=== PATIENT | female | born 1995 | race Caucasian/White ===

== ENCOUNTER 2018-07-12 10:29 | Day surgery (SDC) | payer BC ==
[2018-07-12] MEDS ORDERED: MELATONIN1 MG PO (10:52)
[2018-07-12] MEDS ORDERED: COLACE CLEAR50 MG PO (10:52)
--- NOTE | 2018-07-12 12:20 | NUR ---
07/12/18 1220 Danna,Candace 1214 PT ARRIVED TO PACU ASLEEP AND ON 3L VIA NC. RESP EVEN AND UNLABROED.
--- NOTE | 2018-07-13 11:06 | OR ---
[facility] [address] [place], [place] [address] Signed DATE OF OPERATION: 07/12/2018 SURGEON: Tavo Anglin MD PREOPERATIVE DIAGNOSES: 1. Right lower abdominal pain, anemia, diarrhea, and weight loss. 2. History of appendectomy 2018. POSTOPERATIVE DIAGNOSIS: Terminal ileitis (Crohn disease of ilium). PROCEDURE: Total colonoscopy to cecum with intubation of ileum and biopsies. ANESTHESIA: Intravenous sedation, fentanyl 100 mcg, Versed 4 mg. INDICATION: This 22-year-old white woman is a patient of Dr. Soria and was referred for further evaluation of right lower abdominal pain, diarrhea, and anemia as well as weight loss. She was self-referred to Dr. Soria for the anemia issue. She has previously seen Dr. Trinh as well as Dr. Macias in [place]. She does not describe a primary care provider otherwise at this time. A strong consideration was made for probable terminal ileitis (Crohn disease). She was admitted at this time to undergo colonoscopy to better confirm this suspicion. The risks of bleeding, infection, and perforation related to colonoscopy was reviewed with her. She understands and wished to proceed. FINDINGS: Rather classic terminal ileitis was noted. Narrowing and marked inflammation and thickening of the tissue of the ileum was noted. Biopsies were obtained. The cecum and remaining colon appeared reasonably normal grossly, however. PROCEDURE IN DETAIL: The patient was brought to the endoscopy suite and placed in lateral decubitus position given intravenous sedation to the point of slurred speech and nystagmus. Digital rectal examination was normal. An Olympus video colonoscope was passed in the rectum and manipulated throughout the colon ultimately intubating the cecum, locating and finding the ileocecal valve was Electronically Signed By: TAVO ANGLIN MD 07/13/18 1106 PATIENT NAME: ANDERS SIMS OPERATIVE REPORT DATE OF : [birth year] REPORT #: [id number] PHYSICIAN: TAVO ANGLIN MD PCP: NO PRIMARY CARE PHYSICIAN REPORT IS CONFIDENTIAL AND NOT TO BE RELEASED WITHOUT AUTHORIZATION [facility] [address] [place], [place] [address] Signed initially challenging, but then friable area was noted and with various manipulations, the ileum encountered and intubated. Rather typical and classic terminal ileitis was noted. There was thickening of the mucosa, narrowing of the lumen and so on. Multiple biopsies were obtained and photographs taken. The scope was withdrawn into the cecum where biopsies were obtained, but the mucosa appeared reasonably normal. Careful withdrawal of scope allowed for random biopsies throughout the remaining colon, all of which appeared normal except the rectum, which had mild inflammation. Biopsies were obtained there as well of course. The scope was removed and the patient was taken to recovery room in good condition. CONCLUDING DIAGNOSIS: Crohn's disease (terminal ileitis). No evidence of colitis. Market narrowing of the ileum, but without clinical findings of actual obstruction. PLAN: She will be initiated on prednisone 40 mg daily as well as proton pump inhibitor medication for side of protection of the stomach as well as mesalamine 800 mg p.o. t.i.d. We will initially give Flagyl 250 mg p.o. t.i.d. for 2 weeks. I will see her back in the next few weeks. She may ultimately require terminal ileectomy with anastomosis. Tavo Anglin MD JM/MODL /[id number] cc: MD Moi Acosta MD Copies: JO TRINH MD, ROBERT C MD ~ Electronically Signed By: TAVO ANGLIN MD 07/13/18 1106 PATIENT NAME: ANDERS SIMS OPERATIVE REPORT DATE OF : [birth year] REPORT #: [id number] PHYSICIAN: TAVO ANGLIN MD PCP: NO PRIMARY CARE PHYSICIAN REPORT IS CONFIDENTIAL AND NOT TO BE RELEASED WITHOUT AUTHORIZATION
== END 2018-07-12 13:44 | disposition home or self-care (01) ==
LOC: DS 10:29 → OPS 10:29 → DS 12:45 → OPS 13:44
PROVIDERS: Surgery
PROC: 0DBL8ZX Excision of Transverse Colon, Via Natural or Artificial Opening Endoscopic, Diagnostic (ICD-10-PCS; 2018-07-12)
PROC: 0DBN8ZX Excision of Sigmoid Colon, Via Natural or Artificial Opening Endoscopic, Diagnostic (ICD-10-PCS; 2018-07-12)
PROC: 0DBP8ZX Excision of Rectum, Via Natural or Artificial Opening Endoscopic, Diagnostic (ICD-10-PCS; 2018-07-12)
PROC: 0DBG8ZX Excision of Left Large Intestine, Via Natural or Artificial Opening Endoscopic, Diagnostic (ICD-10-PCS; 2018-07-12)
PROC: 0DBB8ZX Excision of Ileum, Via Natural or Artificial Opening Endoscopic, Diagnostic (ICD-10-PCS; 2018-07-12)
PROC: 0DBH8ZX Excision of Cecum, Via Natural or Artificial Opening Endoscopic, Diagnostic (ICD-10-PCS; principal; 2018-07-12 12:00)
DX: K50.00 Crohn's disease of small intestine without complications (principal); K52.9 Noninfective gastroenteritis and colitis, unspecified; K63.3 Ulcer of intestine; D50.9 Iron deficiency anemia, unspecified; R63.4 Abnormal weight loss; Z91.030 Bee allergy status; Z88.8 Allergy status to other drugs, medicaments and biological substances; Z91.048 Other nonmedicinal substance allergy status; Z87.891 Personal history of nicotine dependence; Z90.49 Acquired absence of other specified parts of digestive tract; Z68.20 Body mass index [BMI] 20.0-20.9, adult
CPT/HCPCS: 99153; G0500; J2250; J3010; J7120

== ENCOUNTER 2020-05-11 00:33 | Inpatient (IN) | payer BC, OTHER ==
[~2020-05-11] VITALS: Ht 167.6 cm; Wt 73.9 kg
[~2020-05-11 00:33] MED LIST: COLACE CLEAR50 MG PO; MELATONIN1 MG PO
[2020-05-11] MEDS ORDERED: REMICADE100 MG/10 IV (05:17)
[2020-05-11] MEDS ORDERED: PRENATABS RX T1 EACH PO (05:18)
--- NOTE | 2020-05-11 12:25 | PR ---
[facility] [address] [place] [address] Signed Progress Notes IP Datetime Report Generated by CPN: 05/11/2020 12:25 PROGRESS NOTES: [id number] Plan: Cervical Ripening; Anticipate Vaginal Delivery VITAL SIGNS: [id number] Vital Signs: Reviewed; Within Normal Limits EXAM: [id number] Contractions: none MEMBRANES: [id number] Membranes Status: Intact Comments: Should be able to start Cytotec soon now. Discussed reqason for delay with patient, but will be starting soon. FETUS A: [id number] FHR Baseline: 120 Variability: Moderate 6-25bpm Accelerations: 15X15 FETUS B: [id number] Signing Physician: Olivia Powell MD Copies: ~ *Electronically Signed* 05/11/20 1225 OLIVIA POWELL MD PATIENT NAME: ANDERS SIMS PROGRESS NOTE DATE OF : [birth year] PHYSICIAN: OLIVIA POWELL MD RPT #: [id number] REPORT IS CONFIDENTIAL AND NOT TO BE RELEASED WITHOUT AUTHORIZATION
--- NOTE | 2020-05-11 14:01 | PR ---
[facility] [address] [place], [place] [address] Signed Progress Notes IP Datetime Report Generated by CPN: 05/11/2020 14:01 PROGRESS NOTES: [id number] Other Procedures: IV fluids Plan: Cervical Ripening; Anticipate Vaginal Delivery VITAL SIGNS: [id number] Vital Signs: Reviewed; Within Normal Limits EXAM: [id number] Contractions: none MEMBRANES: [id number] Membranes Status: Intact Comments: c/o vaginal itching/irritation after insertion of Cytotec. Nurse attempted to sweepa ny non-disolved CYtotec out of vagina. Patient doing well now, but getting frustrated about lack of progress/getting started late. Discussed patient safety issues, symptoms, options. Questions answered. Patient seems satisfied with plan. Will recheck cervix when 2nd Cytotec due and discuss plan with patient. FETUS A: [id number] FHR Baseline: 120 Variability: Moderate 6-25bpm Accelerations: 15X15 FETUS B: [id number] Signing Physician: Olivia Powell MD Copies: ~ *Electronically Signed* 05/11/20 1401 OLIVIA POWLEL MD PATIENT NAME: ANDERS SIMS PROGRESS NOTE DATE OF : [birth year] PHYSICIAN: OLIVIA POWELL MD RPT #: [id number] REPORT IS CONFIDENTIAL AND NOT TO BE RELEASED WITHOUT AUTHORIZATION
--- NOTE | 2020-05-11 17:05 | PR ---
[facility] [address] [facility] [place], [place] [address] Signed Progress Notes IP Datetime Report Generated by CPN: 05/11/2020 17:05 PROGRESS NOTES: [id number] Other Impressions: Slow progression of labor Procedures: Artificial ROM Other Procedures: IV fluids Plan: Continue Present Management VITAL SIGNS: [id number] Vital Signs: Reviewed; Within Normal Limits EXAM: [id number] Dilatation: 2.0 Effacement: 50 Station: -3 Contractions: none MEMBRANES: [id number] Membranes Status: Ruptured Comments: Patient having mild contractions, does not want repeat Cytotec. Discussed options of Pitocin IV, AROM, vs going home and restarting another day. After discussions of risks vs benefits, patient elected AROM. WIll continue monitoring. FETUS A: [id number] FHR Baseline: 120 Variability: Moderate 6-25bpm Accelerations: 15X15 FETUS B: [id number] Signing Physician: Olivia Powell MD Copies: ~ *Electronically Signed* 05/11/20 6918 OLIVIA POWELL MD PATIENT NAME: ANDERS SIMS PROGRESS NOTE DATE OF : [birth year] PHYSICIAN: OLIVIA POWELL MD RPT #: [id number] REPORT IS CONFIDENTIAL AND NOT TO BE RELEASED WITHOUT AUTHORIZATION
--- NOTE | 2020-05-12 12:27 | PR ---
[facility] [address] [facility] [place] [address] Signed PP Progress Notes Datetime Report Generated by CPN: 05/12/2020 12:27 SUBJECTIVE: [id number] Pain: Within Normal Limits Nausea/Vomiting: Denies Vital Signs: Y4783032 Vital Signs: Reviewed; Within Normal Limits Notable Details: PP Hgb/Hct = 9.4/29.6 Abdomen/Uterus: Normal Lochia: Normal Extremities: Normal IMPRESSION/PLAN/PROCEDURES: Q2513742 Impression: Normal Progression Plan: Continue Present Management Procedures: None Progress Notes: Doing well, without complaint. Signing Physician: Olivia Powell MD Copies: ~ *Electronically Signed* 05/12/20 1227 OLIVIA POWELL MD PATIENT NAME: ANDERS SIMS PROGRESS NOTE DATE OF : [birth year] PHYSICIAN: OLIVIA POWELL MD RPT #: [id number] REPORT IS CONFIDENTIAL AND NOT TO BE RELEASED WITHOUT AUTHORIZATION
--- NOTE | 2020-05-13 12:23 | PR ---
[facility] [address] [facility] [place] [address] Signed PP Progress Notes Datetime Report Generated by CPN: 05/13/2020 12:23 SUBJECTIVE: [id number] Pain: Within Normal Limits Nausea/Vomiting: Denies Vital Signs: I9823105 Vital Signs: Reviewed; Within Normal Limits Notable Details: PP Hgb/Hct = 9.4/29.6 EXAM: Met Abdomen/Uterus: Normal Lochia: Normal Extremities: Normal IMPRESSION/PLAN/PROCEDURES: [id number] Impression: Normal Progression Plan: Discharge Procedures: None Progress Notes: Doing well, without complaint, ready to go home. Signing Physician: Olivia Powell MD Copies: ~ *Electronically Signed* 05/13/20 1223 OLIVIA POWELL MD PATIENT NAME: ANDERS SIMS PROGRESS NOTE DATE OF : [birth year] PHYSICIAN: OLIVIA POWELL MD RPT #: [id number] REPORT IS CONFIDENTIAL AND NOT TO BE RELEASED WITHOUT AUTHORIZATION
== END 2020-05-13 13:10 | disposition home or self-care (01) | DRG 806 ==
LOC: FBC 00:33
PROVIDERS: ADMIT General Practice; ATTEND General Practice
PROC: 10E0XZZ Delivery of Products of Conception, External Approach (ICD-10-PCS; principal; 2020-05-11)
PROC: 0UQMXZZ Repair Vulva, External Approach (ICD-10-PCS; 2020-05-11)
PROC: 10907ZC Drainage of Amniotic Fluid, Therapeutic from Products of Conception, Via Natural or Artificial Opening (ICD-10-PCS; 2020-05-11)
PROC: 3E0P7VZ Introduction of Hormone into Female Reproductive, Via Natural or Artificial Opening (ICD-10-PCS; 2020-05-11)
DX: O36.8130 Decreased fetal movements, third trimester, not applicable or unspecified (principal); K50.90 Crohn's disease, unspecified, without complications; Z37.0 Single live birth; O71.82 Other specified trauma to perineum and vulva; Z3A.38 38 weeks gestation of pregnancy; O69.1XX0 Labor and delivery complicated by cord around neck, with compression, not applicable or unspecified; O28.2 Abnormal cytological finding on antenatal screening of mother; O99.62 Diseases of the digestive system complicating childbirth; Z88.8 Allergy status to other drugs, medicaments and biological substances; Z87.891 Personal history of nicotine dependence; Z93.0 Tracheostomy status; Z79.899 Other long term (current) drug therapy
CPT/HCPCS: 36415; 85027; A9270; J0461; J2001; J2550; J2590; J2795; J3010

== ENCOUNTER 2020-10-20 18:53 | Emergency (ER) | payer BC, OTHER ==
[~2020-10-20] VITALS: Ht 167.6 cm; Wt 63.5 kg
[~2020-10-20 18:53] MED LIST changes: +PRENATABS RX T1 EACH PO; +REMICADE100 MG/10 IV
[2020-10-20] MEDS ORDERED: FOLIC ACID1 MG PO (19:15)
[2020-10-20] MEDS ORDERED: METHOTREXATE2.5 MG PO (19:15)
[2020-10-20] MEDS ORDERED: MAPAP500 MG PO (20:55)
[2020-10-20] MEDS ORDERED: LIDODERM1 EACH TOP (20:55)
--- NOTE | 2020-10-21 22:21 | EKG ---
[facility] [address] [facility] [place], [place] [address] Signed Normal sinus rhythm Normal ECG No previous ECGs available Confirmed by JORGE IBARRA MD ([id number]) on 10/21/2020 10:21:39 PM Electronically Signed By: JORGE IBARRA MD 10/21/202220 PATIENT NAME: ANDERS SIMS Electrocardiogram DATE OF : [birth year] PHYSICIAN: JORGE IBARRA MD REPORT #: [id number] REPORT IS CONFIDENTIAL AND NOT TO BE RELEASED WITHOUT AUTHORIZATION
== END 2020-10-20 21:29 | disposition home or self-care (01) ==
LOC: ED 18:53
DX: R07.89 Other chest pain (principal); Z87.891 Personal history of nicotine dependence; Z88.8 Allergy status to other drugs, medicaments and biological substances; Z91.048 Other nonmedicinal substance allergy status; Z91.030 Bee allergy status; Z79.899 Other long term (current) drug therapy
CPT/HCPCS: 71046; 93005; 93010; 99285-25

== ENCOUNTER 2023-03-08 18:45 | Inpatient (IN) | payer BC, OTHER ==
[~2023-03-08 18:45] MED LIST changes: +FOLIC ACID1 MG PO; +LIDODERM1 EACH TOP; +MAPAP500 MG PO; +METHOTREXATE2.5 MG PO; +METOCLOPRAMIDE10 MG PO; +PROMETHAZINE HC25 MG PR; +STELARA90 MG/1 ML SUB-Q
[2023-03-09 08:35] LABS: HEMATOCRIT 36.7 % (35.0-50.0); HEMOGLOBIN 11.9 g/dL (12.0-18.0); MCH 26.8 (27-36); MCHC 32.4 g/dl (30-36); MCV 82.8 fl (81-99); RBC 4.44 M/ul (4.3-5.7); RDW 16.4 (10.5-15.0)
[2023-03-09 09:16] LABS: ABO O; RH POSITIVE
[2023-03-09 09:17] LABS: ANTIBODY SCREEN NEGATIVE
[2023-03-09 09:40] LABS: INFLUENZA B NAA NEGATIVE (NEGATIVE); RESPIRATORY SYNCYTIAL VIR NAA NEGATIVE (NEGATIVE)
--- NOTE | 2023-03-09 09:50 | NUR ---
PT DECLINED PASTORAL CARE VISIT. REVIEWED BURIAL FORM WITH BINDU LEE. PER BINDU LEE MOTHER DECLINES HOSPITAL BURIAL SERVICES AND WISHED TO HAVE BABY CREMATED THROUGH [facility] [employer]. BINDU LEE HAS MADE PRELIMINARY CONTACT WITH [facility] AND INDICATES BURIAL BOXES ARE AVAILABLE IN [facility]. BINDU LEE AND I COMPLETED BURIAL FORM INDICATING HER DECLINATION OF HOSPITAL BURIAL AND PLACED IN PT CHART.
--- NOTE | 2023-03-09 12:10 | PR ---
[facility] [address] [place] [address] Signed Progress Notes IP Datetime Report Generated by CPN: 03/09/2023 12:10 PROGRESS NOTES: [id number] Other Impressions: more uncomfortable but no change in cx Procedures: Sterile Vag Exam Other Plans: Buccal Cytotec VITAL SIGNS: H9621033 Vital Signs: Reviewed; Within Normal Limits EXAM: X9699642 Dilatation: 0.0 Effacement: 0 MEMBRANES: F0806517 Comments: More uncomfortable but no cervical change as yet. Will try buccal Cytotec for this next dose. FETUS A: [id number] FETUS B: [id number] Signing Physician: Pennie Cortés MD Copies: ~ *Electronically Signed* 03/09/23 1210 PENNIE CORTÉS MD PATIENT NAME: ANDERS SIMS PROGRESS NOTE DATE OF : [birth year] PHYSICIAN: PENNIE CORTÉS MD RPT #: [id number] REPORT IS CONFIDENTIAL AND NOT TO BE RELEASED WITHOUT AUTHORIZATION
--- NOTE | 2023-03-09 15:32 | PR ---
[facility] [address] [facility] [place] [address] Signed Progress Notes IP Datetime Report Generated by CPN: 03/09/2023 15:32 PROGRESS NOTES: U3224148 Impression: Normal Progression of Labor Other Impressions: more uncomfortable but no change in cx Procedures: Sterile Vag Exam Plan: Continue Present Management Other Plans: Buccal Cytotec VITAL SIGNS: U1773244 Vital Signs: Reviewed; Within Normal Limits EXAM: O9969604 Dilatation: 0.5 Effacement: 80 MEMBRANES: K2527389 Comments: Getting more uncomfortable and hortencia more. Will repeat buccal Cytotec now. FETUS A: [id number] FETUS B: [id number] Signing Physician: Pennie Cortés MD Copies: ~ *Electronically Signed* 03/09/23 1532 PENNIE CORTÉS MD PATIENT NAME: ANDERS SIMS PROGRESS NOTE DATE OF : [birth year] PHYSICIAN: PENNIE CORTÉS MD RPT #: [id number] REPORT IS CONFIDENTIAL AND NOT TO BE RELEASED WITHOUT AUTHORIZATION
--- NOTE | 2023-03-09 16:27 | PR ---
[facility] [address] [facility] [place] [address] Signed Progress Notes IP Datetime Report Generated by CPN: 03/09/2023 16:27 PROGRESS NOTES: A8743529 Impression: Normal Progression of Labor Other Impressions: more uncomfortable Procedures: Sterile Vag Exam Plan: Continue Present Management Other Plans: Buccal Cytotec VITAL SIGNS: V9583273 Vital Signs: Reviewed; Within Normal Limits EXAM: P7673920 Dilatation: 1.0 Effacement: 80 MEMBRANES: I0808009 Comments: Much more uncomfortable with nausea. She is not interested in narcotics/nitrous/epidural. Will try heat for now as well as IV Reglan. FETUS A: [id number] FETUS B: [id number] Signing Physician: Pennie Cortés MD Copies: ~ *Electronically Signed* 03/09/23 1627 PENNIE CORTÉS MD PATIENT NAME: ANDERS SIMS PROGRESS NOTE DATE OF : [birth year] PHYSICIAN: PENNIE CORTÉS MD RPT #: [id number] REPORT IS CONFIDENTIAL AND NOT TO BE RELEASED WITHOUT AUTHORIZATION
--- NOTE | 2023-03-09 18:42 | PR ---
[facility] [address] [facility] [place] [address] Signed Progress Notes IP Datetime Report Generated by CPN: 03/09/2023 18:42 PROGRESS NOTES: P7725384 Impression: Normal Progression of Labor Other Impressions: more uncomfortable Procedures: Sterile Vag Exam Plan: Continue Present Management Other Plans: Buccal Cytotec VITAL SIGNS: L1640896 Vital Signs: Reviewed; Within Normal Limits EXAM: L5660965 Dilatation: 1.0 Effacement: 80 MEMBRANES: U9855018 Comments: Uncomfortable but better with heat. Does not tolerate the exams well unfortunately. Will try another dose of the buccal Cytotec. FETUS A: [id number] FETUS B: H5402986 Signing Physician: Pennie Cortés MD Copies: ~ *Electronically Signed* 03/09/231841 PENNIE CORTÉS MD PATIENT NAME: ANDERS SIMS PROGRESS NOTE DATE OF : [birth year] PHYSICIAN: PENNIE CORTÉS MD RPT #: [id number] REPORT IS CONFIDENTIAL AND NOT TO BE RELEASED WITHOUT AUTHORIZATION
--- NOTE | 2023-03-09 21:45 | PR ---
[facility] [address] [place] [place] [address] Signed Progress Notes IP Datetime Report Generated by INDRA: 03/09/2023 21:45 PROGRESS NOTES: [id number] Impression: Normal Progression of Labor Other Impressions: cx unchanged Procedures: Sterile Vag Exam Plan: Continue Present Management Other Plans: Buccal Cytotec VITAL SIGNS: H3680836 Vital Signs: Reviewed; Within Normal Limits EXAM: W7065764 Dilatation: 1.0 Effacement: 80 MEMBRANES: L9400384 Comments: Still uncomfortable but no real change. Will try another dose of Cytotec and will use IV Fentanyl with next exam to see if this will allow for AROM. She is amenable to this plan. FETUS A: [id number] FETUS B: [id number] Signing Physician: Pennie Cortés MD Copies: ~ *Electronically Signed* 03/09/23 2145 PENNIE CORTÉS MD PATIENT NAME: ANDERS SIMS PROGRESS NOTE DATE OF : 97 PHYSICIAN: PENNIE CORTÉS MD RPT #: [id number] REPORT IS CONFIDENTIAL AND NOT TO BE RELEASED WITHOUT AUTHORIZATION
--- NOTE | 2023-03-10 00:57 | PR ---
[facility] [address] [place] [place] [address] Signed Progress Notes IP Datetime Report Generated by CPN: 03/10/2023 00:57 PROGRESS NOTES: W7616588 Impression: Normal Progression of Labor Other Impressions: cervix unchanged Procedures: Artificial ROM; Sterile Vag Exam Plan: Continue Present Management Other Plans: Buccal Cytotec VITAL SIGNS: X4484558 Vital Signs: Reviewed; Within Normal Limits EXAM: U3646858 Dilatation: 1.0 Effacement: 80 MEMBRANES: S0038320 Comments: Tolerated exam much better after use of fentanyl. Will continue present course. FETUS A: [id number] FETUS B: [id number] Signing Physician: Pennie Cortés MD Copies: ~ *Electronically Signed* 03/10/23 0057 PENNIE CORTÉS MD PATIENT NAME: ANDERS SIMS PROGRESS NOTE DATE OF : [birth year] PHYSICIAN: PENNIE CORTÉS MD RPT #: [id number] REPORT IS CONFIDENTIAL AND NOT TO BE RELEASED WITHOUT AUTHORIZATION
--- NOTE | 2023-03-10 07:32 | PR ---
[facility] [address] [facility] [place], [place] [address] Signed PP Progress Notes Datetime Report Generated by CPN: 03/10/2023 07:32 SUBJECTIVE: [id number] Pain: Within Normal Limits Vital Signs: Y2187035 Vital Signs: Reviewed; Within Normal Limits EXAM: Ongoing Cardiovascular: Not Done Respiratory: Not Done Abdomen/Uterus: Abnormal Lochia: Normal Vulva/Perineum: Not Done Breasts: Not Done CVA Tenderness: Not Done Extremities: Not Done Incision: Not Applicable Progress: Not Applicable Exam Comments: fundus firm, NT @ U-2 IMPRESSION/PLAN/PROCEDURES: L1590636 Impression: Normal Progression Plan: Discharge Procedures: None Progress Notes: Doing well at this time and bleeding and pain well managed. Will allow discharge when ready. Signing Physician: Pennie Cortés MD Copies: ~ *Electronically Signed* 03/10/23731 PENNIE CORTÉS MD PATIENT NAME: ANDERS SIMS PROGRESS NOTE DATE OF : 97 PHYSICIAN: PENNIE CORTÉS MD RPT #: [id number] REPORT IS CONFIDENTIAL AND NOT TO BE RELEASED WITHOUT AUTHORIZATION
--- NOTE | 2023-03-10 08:16 | NUR ---
PT DOES NOT WISH TO RECEIVE PASTORAL CARE. PRAYED FOR BLESSING OVER BABY AND FOR PEACE AND COMFORT FOR FAMILY.
== END 2023-03-10 10:50 | disposition home or self-care (01) | DRG 807 ==
LOC: FBC 03-09 07:30
PROVIDERS: ADMIT Obstetrics & Gynecology; ATTEND Obstetrics & Gynecology
PROC: 10E0XZZ Delivery of Products of Conception, External Approach (ICD-10-PCS; principal; 2023-03-09)
PROC: 3E0P7VZ Introduction of Hormone into Female Reproductive, Via Natural or Artificial Opening (ICD-10-PCS; 2023-03-09)
PROC: 10907ZC Drainage of Amniotic Fluid, Therapeutic from Products of Conception, Via Natural or Artificial Opening (ICD-10-PCS; 2023-03-09)
DX: O36.4XX0 Maternal care for intrauterine death, not applicable or unspecified (principal); Z37.1 Single stillbirth; Z20.822 Contact with and (suspected) exposure to COVID-19; Z67.40 Type O blood, Rh positive; Z87.891 Personal history of nicotine dependence; Z3A.22 22 weeks gestation of pregnancy; Z90.49 Acquired absence of other specified parts of digestive tract; Z98.890 Other specified postprocedural states; Z88.8 Allergy status to other drugs, medicaments and biological substances
CPT/HCPCS: 36415; 85027; 86850; 86900; 86901; 87502; A9270; C9803; J2590; J2765; J3010; U0002

== ENCOUNTER 2023-12-22 18:01 | Emergency (ER) | payer BC, OTHER ==
[~2023-12-22] VITALS: Ht 167.6 cm; Wt 65.9 kg
[2023-12-22 19:38] LABS: BASOPHILS 0.4 % (0-2); EOSINOPHILS 0.8 % (0-6); HEMATOCRIT 37.8 % (35.0-50.0); HEMOGLOBIN 12.6 g/dL (12.0-18.0); LYMPHOCYTES 17.8 % (24-44); MCH 27.2 (27-36); MCHC 33.3 g/dl (30-36); MCV 81.8 fl (81-99); MONOCYTES 3.9 % (0-12); NEUTROPHILS 77.1 % (39-80); PLATELET COUNT 338 K/uL (140-440); RBC 4.62 M/ul (4.3-5.7); RDW 15.3 (10.5-15.0)
[2023-12-22] MEDS ORDERED: ONDANSETRON ODT8 MG PO (20:06)
[2023-12-22] MEDS ORDERED: ANUSOL-HC25 MG PR (20:06)
[2023-12-22 20:09] LABS: ABO O; RH POSITIVE
[2023-12-22 20:14] LABS: ALBUMIN/GLOBULIN RATIO 0.88 (1.1-2.4); ANION GAP 13.6 (7-21); BILIRUBIN, TOTAL 0.4 ng/dL (0.2-1.0); BUN/CREATININE RATIO 10.52 (6.0-28.6); CALCIUM 8.4 mg/dL (8.5-10.1); CREATININE, SERUM 0.57 mg/dL (0.55-1.02); MAGNESIUM 1.6 mg/dL (1.8-2.4); POTASSIUM 3.6 mmol/L (3.5-5.1); PROTEIN, TOTAL 6.4 g/dL (6.4-8.2)
[2023-12-22] MEDS ORDERED: ONDANSETRON 4 MG HOME.PACK SL ONE (20:15)
[2023-12-22 20:25] VITALS: BP 98/72
[2023-12-22] MEDS ORDERED: MAGNESIUM OXIDE 400 MG TABLET PO ONE (20:30)
== END 2023-12-22 20:25 | disposition home or self-care (01) ==
LOC: ED 18:01
PROVIDERS: Family Medicine
DX: O21.0 Mild hyperemesis gravidarum (principal); O99.612 Diseases of the digestive system complicating pregnancy, second trimester; K50.90 Crohn's disease, unspecified, without complications; Z3A.20 20 weeks gestation of pregnancy; Z87.891 Personal history of nicotine dependence; Z91.030 Bee allergy status; Z88.8 Allergy status to other drugs, medicaments and biological substances; Z91.09 Other allergy status, other than to drugs and biological substances
CPT/HCPCS: 36415; 76815; 80053; 83735; 84702; 85025; 86900; 86901; 99284; A9270

== ENCOUNTER 2024-04-22 00:22 | Inpatient (IN) | payer BC, OTHER ==
[~2024-04-22] VITALS: Ht 167.6 cm; Wt 70.3 kg
--- OUTSIDE RECORDS SUMMARY | ~2024-04-22 | XMS | Continuity of Care Document ---
Demographics + + + | Address | [address] | | | [place] [address] | + + + | Preferred Language | Unknown | + + + | Marital Status | Never | + + + | Worship Affiliation | Unknown | + + + | Race | White | + + + | Ethnic Group | Not or | + + + Author + + + | Author | [facility] | + + + | Organization | [facility] | + + + | Address | [address] | | | [place] [address] | + + + | Phone | | + + + Care Team Providers + + + + | Care Shredder Operator Name | Role | Phone | + + + + Unavailable | Unavailable | + + + + Unavailable | Unavailable | + + + + Allergies No information. Encounters No information. Functional Status No information. Immunizations No information. Medications + + + + | date | description | facility | + + + + | 2024-04-01 00:00 | predniSONE 10 MG Oral | [facility] | | | Tablet | | + + + + | 2024-04-01 00:00 | prednisone 10 MG Oral | [facility] | | | Tablet | | + + + + | 2024-04-01 00:00 | azithromycin 250 MG Oral | [facility] | | | Tablet | | + + + + | 2024-04-01 00:00 | Azithromycin 250 MG Oral | [facility] | | | Tablet | | + + + + Problems No information. Procedures No information. Results/Labs +--------+--------+ +---------+--------+---------+ | test | date | facility | value | unit | notes | +--------+--------+ +---------+--------+---------+ + + | Result panel 1 | + + + + + + + + + | No Results | (no date) | [facility] | No Results | (missing) | (missing) | | | | [facility] | | | | | | | [facility] | | | | + + + + + + + Social History + + + + | date | description | facility | + + + + | 2024-04-02 00:00 | Unknown if ever smoked | [facility] | + + + + | 2024-04-02 00:00 | Ex-smoker (finding) | [facility] | + + + + Vital Signs + + + + + | date | measurement | value | units | + + + + + | 2024-04-01 00:00 | BMI | 24.4 | 1 | + + + + + | 2024-04-01 00:00 | BP_diastolic | 70 | mmHg | + + + + + | 2024-04-01 00:00 | BP_systolic | 118 | mmHg | + + + + + | 2024-04-01 00:00 | BSA | 1.8 | 1 | + + + + + | 2024-04-01 00:00 | heart_rate | 110 | /min | + + + + + | 2024-04-01 00:00 | heart_rate | 1|1| | completed | + + + + + | 2024-04-01 00:00 | height_metric | 167.64 | cm | + + + + + | 2024-04-01 00:00 | height_standard | 66 | in | + + + + + | 2024-04-01 00:00 | o2_saturation | 97 | % | + + + + + | 2024-04-01 00:00 | temperature_metric | 36.83 | C | | | | | | + + + + + | 2024-04-01 00:00 | | 98.3 | F | | | temperature_standar | | | | | d | | | + + + + + | 2024-04-01 00:00 | weight_metric | 68.58 | kg | + + + + + | 2024-04-01 00:00 | weight_standard | 151.19 | lb | + + + + +"
[~2024-04-22 00:22] MED LIST changes: +ANUSOL-HC25 MG PR; +CALCIUM CARBONATE 500 MG CHEW PO PRN; +LACTATED RINGER'S 1,000 ML IV SCH; +MAGNESIUM HYDROXIDE/AL HYDROX 30 ML CUP PO PRN; +ONDANSETRON ODT8 MG PO; +miSOPROStoL 25 MCG TAB PV SCH
[2024-04-22] MEDS ORDERED: OXYTOCIN/DEXTROSE 5% 20 UNITS/100 ML BAG IV SCH (00:30)
[2024-04-22 01:11] LABS: HEMATOCRIT 32.3 % (35.0-50.0); HEMOGLOBIN 10.3 g/dL (12.0-18.0); MCH 23.1 (27-36); MCHC 31.9 g/dl (30-36); MCV 72.3 fl (81-99); RBC 4.47 M/ul (4.3-5.7); RDW 15.9 (10.5-15.0)
[2024-04-22 01:29] LABS: AMPHETAMINES, URINE NEGATIVE (NEGATIVE); BARBITURATES, URINE NEGATIVE (NEGATIVE); BENZODIAZEPINE, URINE NEGATIVE (NEGATIVE); BUPRENORPHINE, URINE NEGATIVE (NEGATIVE); CANNABINOID, URINE NEGATIVE (NEGATIVE); COCAINE, URINE NEGATIVE (NEGATIVE); ECSTASY, URINE NEGATIVE (NEGATIVE); FENTANYL, URINE NEGATIVE (NEGATIVE); METHADONE, URINE NEGATIVE (NEGATIVE); OPIATES, URINE NEGATIVE (NEGATIVE); OXYCODONE, URINE NEGATIVE (NEGATIVE); PHENCYCLIDINE, URINE NEGATIVE (NEGATIVE)
[2024-04-22 01:47] LABS: ABO O
[2024-04-22 01:48] LABS: ANTIBODY SCREEN NEGATIVE; RH POSITIVE
[2024-04-22] MEDS ORDERED: fentaNYL citrate 100 MCG/2 ML VIAL IV PRN (10:45)
[2024-04-22] MEDS ORDERED: OXYTOCIN/0.9 % SODIUM CHLORIDE 500 ML IV SCH (11:45)
[2024-04-22] MEDS ORDERED: LIDOCAINE 2% VISCOUS 6 ML SYR TOP ONE ×2 (11:45)
[2024-04-22] MEDS ORDERED: HYDROCORTISONE ACETATE 25 MG SUPP PR PRN (11:45)
[2024-04-22] MEDS ORDERED: MAGNESIUM HYDROXIDE/AL HYDROX 30 ML CUP PO PRN (11:45)
[2024-04-22] MEDS ORDERED: ACETAMINOPHEN 325 MG TAB PO PRN (11:45)
[2024-04-22] MEDS ORDERED: BENZOCAINE 60 ML AEROSOL TOP PRN (11:45)
[2024-04-22] MEDS ORDERED: HYDROCODONE/ACETA 5/325 TAB PO PRN (11:45)
[2024-04-22] MEDS ORDERED: MAGNESIUM HYDROXIDE 30 ML UDC PO PRN (11:45)
[2024-04-22] MEDS ORDERED: IBUPROFEN 600 MG TAB PO PRN (11:45)
[2024-04-22] MEDS ORDERED: WITCH HAZEL/GLYCERIN 1 EA PAD TOP PRN (11:45)
[2024-04-22] MEDS ORDERED: CALCIUM CARBONATE 500 MG CHEW PO PRN (11:45)
[2024-04-22] MEDS ORDERED: SENNOSIDES/DOCUSATE 1 EA TAB PO SCH (21:00)
[2024-04-23 05:57] LABS: HEMATOCRIT 35.5 % (35.0-50.0); HEMOGLOBIN 11.1 g/dL (12.0-18.0); MCH 23.1 (27-36); MCHC 31.1 g/dl (30-36); MCV 74.1 fl (81-99); RBC 4.8 M/ul (4.3-5.7); RDW 16.1 (10.5-15.0)
== END 2024-04-24 10:45 | disposition home or self-care (01) | DRG 807 ==
LOC: FBC 00:22
PROVIDERS: ADMIT Obstetrics & Gynecology; ATTEND Obstetrics & Gynecology
PROC: 10E0XZZ Delivery of Products of Conception, External Approach (ICD-10-PCS; principal; 2024-04-22)
PROC: 3E0DXGC Introduction of Other Therapeutic Substance into Mouth and Pharynx, External Approach (ICD-10-PCS; 2024-04-22)
PROC: 10907ZC Drainage of Amniotic Fluid, Therapeutic from Products of Conception, Via Natural or Artificial Opening (ICD-10-PCS; 2024-04-22)
DX: O99.52 Diseases of the respiratory system complicating childbirth (principal); Z37.0 Single live birth; J39.8 Other specified diseases of upper respiratory tract; J98.09 Other diseases of bronchus, not elsewhere classified; O69.81X0 Labor and delivery complicated by cord around neck, without compression, not applicable or unspecified; O70.0 First degree perineal laceration during delivery; Z3A.37 37 weeks gestation of pregnancy; Z87.891 Personal history of nicotine dependence; Z90.49 Acquired absence of other specified parts of digestive tract
CPT/HCPCS: 36415; 80307; 85027; 86850; 86900; 86901; A9270; J3010